=== PATIENT | male | born 1935 | race Hispanic/Latino ===

== ENCOUNTER 2016-12-26 15:26 | Inpatient (IN) | payer MEDICARE, OTHER ==
[2016-12-26] MEDS ORDERED: Ondansetron HCl/PF 4 MG/2 ML Vial ONE (15:42)
[2016-12-26] MEDS ORDERED: Benzocaine 20% Spray 60 ML CAN ONE (15:58)
[2016-12-26 16:18] LABS: Hematocrit 27.6 % (42.0-52.0); Mean Platelet Volume 8.9 fL (7.4-10.4); Red Blood Cell (RBC) Count 2.48 mill/uL (4.70-6.10); White Blood Cell (WBC) Count 8.3 thou/uL (4.8-10.8)
[2016-12-26 16:22] LABS: PTT 38.1 SEC (22.9-36.1); Prothrombin Time 23.3 SEC (12.0-14.7)
[2016-12-26 16:32] LABS: Lactic Acid - Sepsis 2.1 mmol/L (0.5-2.2)
[2016-12-26 16:35] LABS: ALT (SGPT) 20 U/L (8-55); AST (SGOT) 56 U/L (5-34); Alkaline Phosphatase 129 U/L (40-150); Anion Gap 17 mmol/L (10-20); BUN (Urea Nitrogen) 41 mg/dL (8.4-25.7); Bilirubin, Total 1.8 mg/dL (0.2-1.2); CK (CPK) 101 U/L (30-200); Calc. Creatinine Clearance 0 mL/min (70-130); Calcium 6.8 mg/dL (7.8-10.44); Carbon Dioxide 22 mmol/L (23-31); Chloride 98 mmol/L (98-107); Estimated GFR-MDRD 19; Globulin 4.6 g/dL (2.4-3.5); Lipase 4 U/L (8-78); Protein, Total 6.2 g/dL (5.8-8.1)
--- NOTE | 2016-12-26 16:37 | RAD ---
RADIOGRAPH CHEST 1 VIEW: Date: 12/26/16 Time: 4:09 p.m. HISTORY: 81-year-old male with nausea and emesis. COMPARISON: 06/28/2009. FINDINGS: The previously demonstrated bilateral pleural effusions and bibasilar air space densities are no karine uyen present. There is a new right internal jugular double lumen dialysis catheter with distal tip ov erlying the right atrium. There is elevation of the right hemidiaphragm. Left ventricular configurat ion of the heart. Ectatic, tortuous thoracic aorta. No consolidation, pulmonary edema, or pneumothor ax. No significant effacement of lateral costophrenic angles. Large amount of bowel gas. IMPRESSION: 1. Abnormal bowel gas pattern. See separate report of the CT of the abdomen and pelvis. 2. No acute pulmonary findings. 3. Right sided double lumen dialysis catheter. 4. Ectasia and tortuosity of thoracic aorta. DEWAYNE [] POS: NIKA
[2016-12-26 16:39] LABS: Troponin I 0.264 ng/mL (< 0.028)
[2016-12-26] MEDS ORDERED: Dextrose 50% Abboject 50 ML SYRINGE ONE (16:44)
[2016-12-26 16:48] LABS: Band 36 % (5-11); Hypochromia SLIGHT = 6-15 cells (100X) (0-5/hpf); Metamyelocyte 2 % (0-0); Microcytosis SLIGHT = 6-15 cells (100X) (0-5/hpf); Neutrophil 51 % (42-75); Reactive Lymphocytes 1 % (0-10); Vacuoles SLIGHT
[2016-12-26] MEDS ORDERED: Lidocaine 2% Jelly 5 ML TUBE ONE (17:11)
--- NOTE | 2016-12-26 17:23 | RAD ---
EXAM: ONE VIEW CHEST 12/26/16 HISTORY: NG tube placement. COMPARISON: None. FINDINGS: One view chest does not demonstrate an NG tube in the stomach. There is a catheter projecting over t he distal thorax, presumed to be in the distal thoracic esophagus. Advancement is recommended. IMPRESSION: Advancement of the nasogastric tube. The results of the study discussed with Dr. Hidalgo, 12/26/16 at 5:04 p.m. Code CR POS: NIKA
[2016-12-26] MEDS ORDERED: Ondansetron ODT 4 MG TAB PO PRN (19:15)
[2016-12-26 19:37] VITALS: BMI 19.3
--- NOTE | 2016-12-26 19:49 | HP ---
PRIMARY CARE PHYSICIAN: Henri Easley M.D. CHIEF COMPLAINT: Abdominal pain and leg weakness. HISTORY OF PRESENT ILLNESS: Mr. Rich is a 81-year-old gentleman who has a history of hypertension and end-stage renal disease on hemodialysis as well as cirrhosis with history of esophageal varices . He was in his usual state of health until this morning when he began having pain in his lower abd omen. He said it was radiating to his back. He also says that his legs are extremely weak and hurt ing. He also had noticed vomiting off and on after eating and as a result [facility] and was found to have a small-bowel obstruction by CT scan. The patient has recently be en placed in [facility], I believe at [place] because of lower extremity weaknes s and the staff there is who had brought him to the emergency room. The patient also had a history of some cough which has been productive of some phlegm as well as some shortness of breath, but no c hest pain. His last bowel movement was yesterday and he says it was only like very small rather lik e pellet, the stool was a little bit dark as well. REVIEW OF SYSTEMS: CONSTITUTIONAL: He has had subjective fever, but no chills, no night sweats. Erika du has had some weight loss in the past few weeks. HEENT: He denies any headaches, no dizziness, no visual changes, no sore throat, rhinorrhea, neck pain, no adenopathy. PULMONARY: No hemoptysis, b ut he has had some cough, no wheezing. CARDIOVASCULAR: No chest pain. He has had some shortness o f breath, but no PND, no orthopnea. GASTROINTESTINAL: He has had the lower abdominal pain. He not ices that his hernia seems more distended and vomiting as previously mentioned. MUSCULOSKELETAL: Erika du complains of lower extremity weakness which has been off and on for weeks. No swelling. NEUROLOG IC: No focal weakness that he reports. SKIN/INTEGUMENT: No skin changes. No rash. PSYCHIATRIC: No symptoms of anxiety or depression. PAST MEDICAL HISTORY: Significant for cirrhosis with esophageal varices. He is status post banding . He has a history of end-stage renal disease on hemodialysis. He has been on dialysis for about t he past 4 months. He dialyzes Thursday, , and Thursday and sees Dr. Mathews. He also has sever e congestive heart failure, type is unknown, as well as hypertension. PAST SURGICAL HISTORY: He has had a cardiac catheterization, dialysis catheter placed and fistula a s well as esophageal banding for varices. ALLERGIES: No known drug allergies. SOCIAL HISTORY: He is . He is a non-smoker, nondrinker. He would like to be a FULL CODE. FAMILY HISTORY: Significant for hypertension. CURRENT MEDICATIONS: Include amlodipine 5 mg daily, carvedilol 6.25 mg twice a day, clonidine 0.2 m g twice daily, and Lasix 20 mg daily. PHYSICAL EXAMINATION: GENERAL: He is alert and oriented. He appears to be in no acute distress. VITAL SIGNS: Blood pressure was 135/63, heart rate 58, respiratory rate of 18, temperature is 97.6. HEENT: His pupils are equal, round, and reactive. Extraocular muscles are intact. His sclerae are anicteric. Throat, no erythema, no exudates. NECK: No adenopathy. LUNGS: He has got some coarse breath sounds. CARDIOVASCULAR: He has a normal S1, S2. I do not appreciate an S3 or S4. No murmurs, clicks, no r ubs. ABDOMEN: Soft, scaphoid. He does have an umbilical hernia which is reducible. His abdomen is slig htly tympanic to percussion. There is no rebound or guarding. EXTREMITIES: There is no edema. NEUROLOGIC: Neurologically, the exam is nonfocal. He is relatively cachectic with severe muscle wa sting. LABORATORY DATA AND IMAGING: INR was 2.0. White blood cell count 8.3, hemoglobin 8.7, hematocrit i s 27.6, and platelet count was 76. Sodium 133, potassium 4.4, chloride is 98, CO2 is 22, BUN of 41, creatinine 3.15, and glucose is 221. Had a CT scan of the abdomen and pelvis showing a right basil ar lung consolidation as well as ascites findings consistent with cirrhosis as well as a small-bowel obstruction, a 3.3 cm infrarenal abdominal aortic aneurysm and some lesions in the inferior pole of the liver, which were suspicious. ASSESSMENT AND PLAN: This is a 81-year-old gentleman that presents with lower abdominal pain. Find ings on CT scan consistent with a small-bowel obstruction. He also has a history of cirrhosis and s ome questionable lesion in the liver which is suspicious for possible malignancy such as hepatocellu lar carcinoma. He also had an infiltrate in the right lower lobe which could be consistent with pne umonia given his history of vomiting in the past few days, it t is possible that this could be an as piration pneumonia and he also has fairly advanced cirrhosis with coagulopathy and history of esopha geal varices in the past. The patient will be admitted to the medical floor. He has already been m juan carlos n.p.o. and has an NG tube to low intermittent suction. General Surgery will be consulted. He w ill be placed on IV fluids in the meantime as well as IV antibiotics. We will use Rocephin and Flag yl in his case. His tax form preparer will be consulted for his maintenance hemodialysis and will also c heck an alpha fetoprotein level given the lesions in the liver and likely will need to consult his g astroenterologist as well. Given his multiple comorbidities, his prognosis is extremely poor. This was explained to the patient at the time of admission and again he does wish to continue to be a FU LL CODE.
[2016-12-26] MEDS ORDERED: cefTRIAXone\\ROCEPHIN 1 GM in Sodium Chloride 0.9% 100 ML IVPB SCH (20:00)
[2016-12-26 20:06] LABS: Troponin I 0.263 ng/mL (< 0.028)
[2016-12-26] MEDS: Famotidine/PF 20 mg/2ml Vial SLOW IVP SCH (20:58)
[2016-12-26] MEDS: Dextrose 5 % And 0.9 % NaCl 1,000 ML IV SCH (20:58)
[2016-12-26 22:30] LABS: Troponin I 0.226 ng/mL (< 0.028)
[2016-12-26] MEDS ORDERED: HYDROcodone/Acetaminophen 10/325 mg Tablet PO PRN (23:26)
[2016-12-26] MEDS: metroNIDAZOLE 250 MG in Admixture Fee 2 EACH IVPB SCH (23:38)
[2016-12-27 05:49] LABS: Anion Gap 15 mmol/L (10-20); BUN (Urea Nitrogen) 51 mg/dL (8.4-25.7); Calc. Creatinine Clearance 13 mL/min (70-130); Carbon Dioxide 21 mmol/L (23-31); Chloride 102 mmol/L (98-107); Estimated GFR-MDRD 17
[2016-12-27 06:01] LABS: Band 27 % (5-11); Hematocrit 24.9 % (42.0-52.0); Mean Platelet Volume 8.2 fL (7.4-10.4); Neutrophil 65 % (42-75); Red Blood Cell (RBC) Count 2.24 mill/uL (4.70-6.10); White Blood Cell (WBC) Count 8.1 thou/uL (4.8-10.8)
[2016-12-27] MEDS: metroNIDAZOLE 250 MG in Admixture Fee 2 EACH IVPB SCH ×2 (06:41→13:35)
--- NOTE | 2016-12-27 09:11 | PDOC.PN ---
- Subjective Encounter Start Date: 12/27/16 Encounter Start Time: 09:10 Mr. Rich was seen in dialysis. He is currently very drowsy. He was given Morphine this morning. He is unable to tell me if his abdominal pain has improved. - Objective Resuscitation Status: Resuscitation Status FULL:Full Resuscitation MAR Reviewed: Yes Vital Signs & Weight: Vital Signs (12 hours) Temp Pulse Resp BP Pulse Ox 12/27/16 04:00 98.5 F 63 16 101/50 L 94 L 12/27/16 00:00 97.8 F 59 L 16 103/49 L 96 Weight Weight 112 lb 14.4 oz I&O: 12/26/16 12/27/16 12/28/16 06:59 06:59 06:59 Intake Total 690 Balance 690 Result Diagrams: 12/27/16 05:09 12/27/16 05:09 Additional Labs: Accuchecks 12/26/16 18:11 POC Glucose 125 H Phys Exam - Physical Examination HEENT: PERRLA Respiratory: no wheezing, no rales, no rhonchi, clear to auscultation bilateral Cardiovascular: RRR, no significant murmur Gastrointestinal: soft, non-tender, positive bowel sounds Musculoskeletal: no edema Dx/Plan (1) Small bowel obstruction Code(s): K56.69 - OTHER INTESTINAL OBSTRUCTION Status: Acute (2) Ventral hernia Code(s): K43.9 - VENTRAL HERNIA WITHOUT OBSTRUCTION OR GANGRENE Status: Acute (3) End stage renal disease Code(s): N18.6 - END STAGE RENAL DISEASE Status: Acute (4) Cirrhosis of liver Code(s): K74.60 - UNSPECIFIED CIRRHOSIS OF LIVER Status: Acute (5) HTN (hypertension) Code(s): I10 - ESSENTIAL (PRIMARY) HYPERTENSION Status: Acute (6) Pneumonia, aspiration Code(s): J69.0 - PNEUMONITIS DUE TO INHALATION OF FOOD AND VOMIT Status: Acute - Plan * Small Bowel Obstruction- patient has less output from the NG tube, and his abdomen feels softer * Will await Surgery Evaluation * Pneumonia- suspected aspiration- will continue Rocephin and Flagyl * ESRD- tolerating Dialysis * Liver mass- AFP level was low, will hold off on GI Consult at this time, and can evaluate the liver mass as an Outpatient * HTN - blood pressure is low but stable * Anemia- slight drop in H&H, will continue to monitor, and transfuse as needed.
--- NOTE | 2016-12-27 10:02 | PRG ---
DATE OF SERVICE: 12/27/2016 SUBJECTIVE: This is a 81-year-old gentleman being seen for end-stage renal disease. Patient denies any nausea, vomiting or chest pain. PHYSICAL EXAMINATION: GENERAL: Patient is awake and alert. VITAL SIGNS: Afebrile, pulse 60, breathing at 16, blood pressure 101/55. GENERAL APPEARANCE AND MENTAL STATUS: Fair. HEAD/NECK: Normocephalic. Atraumatic. EYES: EOMI. No deformity. EARS: Clear. No ulcers. NOSE: Intact. No lesions. MOUTH: Clear. No discharge. THROAT: Clear. No exudate. LUNGS: Clear. No crackles. CARDIAC: S1, S2. No rub. ABDOMEN: Benign. BS+. GENITALIA/RECTUM: Humphreys absent. BACK/EXTREMITIES: Edema 0+ Ulcer- NEUROLOGICAL: Alert and motor intact. SKIN: Rash- Bruise- LYMPHATICS: Edema- Ulcer- LABORATORY DATA: Show hemoglobin 7.8, potassium is 3.9. ASSESSMENT AND RECOMMENDATIONS: 1. Stage 6 chronic kidney disease. Continue dialysis. 2. Hypertension, stable. 3. Anemia, stable. 4. Medications based on glomerular filtration rate, I would avoid morphine sulfate.
[2016-12-27] MEDS ORDERED: Heparin 1,000 UNITS/ML VIAL ONE (11:11)
[2016-12-27] MEDS ORDERED: Dextrose 50% Abboject 50 ML SYRINGE SLOW IVP SCH (12:54)
[2016-12-27] MEDS ORDERED: Dextrose 50% Abboject 50 ML SYRINGE ONE (12:57)
[2016-12-27] MEDS: Dextrose 5 % And 0.9 % NaCl 1,000 ML IV SCH (13:35)
[2016-12-27] MEDS ORDERED: Lactulose 10 GM/15 ML Oral Solution PR SCH (14:45)
[2016-12-27 14:49] LABS: Hematocrit 26.5 % (42.0-52.0)
--- NOTE | 2016-12-27 14:50 | PDOC.EVN ---
Event Note - Event Note Event Note: Mr. Rich is still very lethargic upon re-assessment. He is only able to mumble a few words, which are barely understandable. His abdomen is soft, but he continues to have some dark but clear output from the NG tube. I have explained to the patient's son, that his condition has deteriorated some since last night. He has multiple severe life-threatening, albeit chronic conditions including ESRD, advanced cirrhosis with coagulopathy, Bowel obstruction, and pneumonia. We re-visited code status again. He says his father had requested not to be resusitated on a previous admission, and he believes he would want to change his code status. He will talk with the patient's ( his mother and let the staff know if the code status should be changed). In the interim, will check his H&H, and transfuse if needed, and will give a trial of a Lactulose retention enema for his mental status. Prognosis is grave.
--- NOTE | 2016-12-27 16:31 | DIS ---
DATE OF ADMISSION: 12/26/2016 DATE OF DISCHARGE: 12/27/2016 PRIMARY CARE PHYSICIAN: Through Dr. Easley. DISCHARGE DISPOSITION: Home with home hospice. DISCHARGE DIAGNOSES: 1. Small-bowel obstruction. 2. Cirrhosis. 3. End-stage renal disease. 4. Aspiration pneumonia. 5. History of congestive heart failure. 6. Hypertension. 7. Moderate protein calorie malnutrition. DISCHARGE MEDICATIONS: They are the same as that on admission and include hydralazine 25 mg t.i.d., polyethylene glycol 17 grams daily, pantoprazole 40 mg daily, isosorbide mononitrate 30 mg extended release daily, furosemide 40 mg daily, vitamin B12 1000 mcg daily, vitamin D 1000 units daily, and carvedilol 25 mg twice a day. CODE STATUS: DNR. ALLERGIES: No known drug allergies. HOSPITAL COURSE: Mr. Rich is a 81-year-old gentleman who was admitted from inpatient rehabilitati on after it was noted that he was having severe abdominal pain as well as nausea and vomiting. He w as sent to have a CT scan done, it was seen on the CT scan that he had a bowel obstruction. In gretchen tion to the small-bowel obstruction, there was not noted a mass on the patient's liver as well as a right lower lobe infiltrate and ascites and a 3.3 cm infrarenal abdominal aortic aneurysm. He was m juan carlos n.p.o. and NG tube was placed and he was admitted to the floor. He was already determined to be a very poor surgical candidate at the time of admission; however, at that time he was awake and alcira rt and able to answer some questions. However, the following day, he continued to have some abdomin al pain and was given a dose of morphine and then following this, the patient never fully recovered. He was extremely lethargic throughout most of the day. He was very weak and again very cachectic in appearance and his hemoglobin dropped slightly. I talked to the son about his deteriorating cond ition and son stated that he had been basically declining in the last few months and the decision wa s made to change his code status to DNR. The patient's son spoke with the patient's to verify this and later on during the day, they decided they did not want any further aggressive treatment an d took their father home and with home hospice. Therefore, hospice consult was obtained prior to marleny nixon and he was subsequently discharged home.
--- NOTE | 2016-12-27 16:38 | CON ---
DATE OF CONSULTATION: 12/27/2016 GENERAL SURGERY CONSULTATION CHIEF COMPLAINT: Abdominal pain. HISTORY: This is a 81-year-old male who was at rehabilitation was developing some lower abdominal p ain radiating to the back associated with nausea and vomiting. They sent him for a CT scan which cagle ggested small-bowel obstruction. PAST MEDICAL HISTORY: Significant for cirrhosis, esophageal varices status post banding, end-stage renal disease on dialysis, severe congestive heart failure, and hypertension. PAST SURGICAL HISTORY: Cardiac catheterization, dialysis catheter placement, fistula. ALLERGIES: No known drug allergies. SOCIAL HISTORY: . No tobacco or alcohol. FAMILY HISTORY: Hypertension. MEDICATIONS: Amlodipine 5 mg daily, carvedilol 6.25 two tabs b.i.d., clonidine 0.2 b.i.d., Lasix 40 daily. PHYSICAL EXAMINATION: VITAL SIGNS: Temperature 98.5, pulse 84, blood pressure 117/58. GENERAL: He is an elderly male, lying still in no apparent distress. He just got back from dialysi s, but he is really not responsive to voice or even sternal rub, but he looks comfortable and he is breathing well. He has got a tunneled dialysis catheter on the right chest. LUNGS: Clear. HEART: Regular rate and rhythm. ABDOMEN: Soft, nondistended, nontender. He has a reducible umbilical/epigastric hernia. There are no palpable masses. LABORATORY DATA AND X-RAY FINDINGS: His white count is 8, hemoglobin and hematocrit are 7 and 24, a nd platelet count 66,000. His INR is 2 and his PT is 23. CT shows ascites with abdominal aortic an eurysm at 3.3 cm and a small-bowel obstruction. ASSESSMENT: Possible small-bowel obstruction, but very high risk for surgery. PLAN: IV hydration, NG suction. If he does not open up, we will do a small bowel follow through to [facility].
[2016-12-27 16:58] VITALS: BP 108/57; TEMP 98.6
[2016-12-27] MEDS: Famotidine/PF 20 mg/2ml Vial SLOW IVP SCH (18:00)
[2016-12-28] MEDS ORDERED: Pantoprazole 40 MG VIAL IVP SCH (09:00)
== END 2016-12-27 20:27 | disposition hospice, home (50) | DRG 393 ==
LOC: ERS 15:26 → 2NO 16:48
PROVIDERS: ADMIT Internal Medicine; ATTEND Internal Medicine
PROC: 0D9670Z Drainage of Stomach with Drainage Device, Via Natural or Artificial Opening (ICD-10-PCS; principal; 2016-12-26)
PROC: 5A1D00Z (ICD-10-PCS; 2016-12-27)
DX: K42.0 Umbilical hernia with obstruction, without gangrene (principal); N18.6 End stage renal disease; J69.0 Pneumonitis due to inhalation of food and vomit; I13.2 Hypertensive heart and chronic kidney disease with heart failure and with stage 5 chronic kidney disease, or end stage renal disease; E44.0 Moderate protein-calorie malnutrition; R18.8 Other ascites; K74.60 Unspecified cirrhosis of liver; Z68.1 Body mass index [BMI] 19.9 or less, adult; K43.6 Other and unspecified ventral hernia with obstruction, without gangrene; I50.9 Heart failure, unspecified; D64.9 Anemia, unspecified; I71.4 Abdominal aortic aneurysm, without rupture; Z99.2 Dependence on renal dialysis; Z66 Do not resuscitate
CPT/HCPCS: 36415; 36416; 71010; 74000; 80053; 82105; 82140; 82550; 82553; 83605; 83690; 83880; 84443; 84484; 85025; 85610; 85730; 87040; 90935; 93005; 96361; 96365; 96375; G0257; J0696; J1644; J2270; J2405; J3370; J7050; Q0162; S0028

== ENCOUNTER 2016-12-27 20:37 | Inpatient (IN) | payer OTHER ==
[2016-12-27 20:47] VITALS: BMI 19.7
[2016-12-27] MEDS ORDERED: Dextrose 50% Abboject 50 ML SYRINGE ONE (20:50)
[2016-12-27] MEDS: Dextrose 50% Abboject 50 ML SYRINGE SLOW IVP PRN (21:03)
[2016-12-27] MEDS ORDERED: Hyoscyamine Sulfate SL 0.125 mg Tablet SL PRN (21:22)
[2016-12-27] MEDS ORDERED: Acetaminophen 650 MG Suppository PR PRN (21:23)
[2016-12-28] MEDS: Dextrose 5% in Water 1,000 ML IV SCH ×2 (00:25→22:25)
[2016-12-28] MEDS: Lorazepam 2 MG/ML VIAL SLOW IVP PRN ×3 (00:50→22:25)
[2016-12-28] MEDS: Dextrose 50% Abboject 50 ML SYRINGE SLOW IVP PRN ×2 (04:17→16:04)
[2016-12-29] MEDS: Dextrose 50% Abboject 50 ML SYRINGE SLOW IVP PRN ×2 (00:14→08:28)
[2016-12-29] MEDS ORDERED: Lorazepam 0.5 MG TAB PO PRN (12:29)
[2016-12-29] MEDS ORDERED: Morphine Sulfate 10 mg/0.5 ml Oral Syringe SL PRN ×3 (12:30→12:31)
[2016-12-29] MEDS ORDERED: Prochlorperazine Maleate 5 MG TAB PO PRN (12:31)
[2016-12-29 19:25] VITALS: BP 84/47; TEMP 98.6
--- NOTE | 2016-12-30 14:06 | DS ---
CAUSE OF : End-stage renal disease. HISTORY OF PRESENT ILLNESS: This is a 81-year-old gentleman who presented to the hospital with smal l bowel obstruction as well as end-stage renal disease. The patient had altered mental status and t he family did not want to pursue any aggressive care and so hospice was consulted. The patient expi red on 12/30/2016 at 12:10 midnight. DISPOSITION: home. COMPLICATIONS: None. The patient was comfortable prior to that.
== END 2016-12-30 00:10 | disposition expired | DRG 951 ==
LOC: 2NO 20:37 → ONC 23:20
PROVIDERS: ADMIT Internal Medicine; ATTEND Internal Medicine
DX: Z51.5 Encounter for palliative care (principal); I13.2 Hypertensive heart and chronic kidney disease with heart failure and with stage 5 chronic kidney disease, or end stage renal disease; K56.609 Unspecified intestinal obstruction, unspecified as to partial versus complete obstruction; N18.6 End stage renal disease; I85.10 Secondary esophageal varices without bleeding; K74.60 Unspecified cirrhosis of liver; I50.9 Heart failure, unspecified; Z99.2 Dependence on renal dialysis; Z66 Do not resuscitate
CPT/HCPCS: 36416; J2060